=== PATIENT | female | born 1945 ===

== ENCOUNTER → 2018-03-06 | Day surgery (SDC) | payer OTHER ==
[~2018-03-06] VITALS: Ht 149.9 cm; Wt 56.7 kg
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
== END ==
LOC: STS 01:12
DX: H25.89 Other age-related cataract (principal); E11.9 Type 2 diabetes mellitus without complications; Z79.84 Long term (current) use of oral hypoglycemic drugs; E07.9 Disorder of thyroid, unspecified; I10 Essential (primary) hypertension
CPT/HCPCS: J2001; J2250; J3490; V2632